=== PATIENT | male | born 1965 | race Caucasian/White ===

== ENCOUNTER 2018-06-28 18:23 | Emergency (ER) | payer BC ==
--- NOTE | 2018-06-28 20:27 | EDM.PDOC ---
ED HPI GENERAL MEDICAL PROBLEM - General Chief Complaint: Genitourinary Problem Stated Complaint: UNABLE TO URINATE SINCE 12PM Time Seen by Provider: 06/28/18 19:58 Source of Information: Reports: Patient, RN Notes Reviewed History Limitations: Reports: No Limitations - History of Present Illness INITIAL COMMENTS - FREE TEXT/NARRATIVE: Patient is a 52-year-old male who presents to the ED for evaluation of urinary retention after his hemorrhoidectomy today. The patient states that this morning he underwent an hemorrhoidectomy done by Dr. Pitts, he states that everything went fine and he was able to urinate shortly after the surgery. He states at around noon he became unable to void and has not emptied his bladder since noon today. The patient states that he had the urge to go but could not initiate his stream. He denies any fevers, chills, nausea, vomiting or abdominal pain. He said there was some mild bladder discomfort earlier with urinary retention. He also states that he has not had a prior issue with an enlarged prostate or trouble urinating in the past. Abdomen Pain Score (Numeric/FACES): 4 - Related Data Allergies Allergy/AdvReac Type Severity Reaction Status Date / Time No Known Allergies Allergy Verified 06/28/18 18:38 Home Meds: Home Meds . [No Known Home Meds] 06/28/18 [History] ED ROS GENERAL - Review of Systems Review Of Systems: See Below Constitutional: Reports: No Symptoms HEENT: Reports: No Symptoms Respiratory: Reports: No Symptoms Cardiovascular: Reports: No Symptoms Endocrine: Reports: No Symptoms GI/Abdominal: Reports: Abdominal Pain (lower abdominal discomfort) : Reports: Urinary Retention. Denies: Dysuria, Frequency, Hematuria, Pain Musculoskeletal: Reports: No Symptoms Skin: Reports: No Symptoms Neurological: Reports: No Symptoms Psychiatric: Reports: No Symptoms Hematologic/Lymphatic: Reports: No Symptoms Immunologic: Reports: No Symptoms ED EXAM, RENAL/ - Physical Exam Exam: See Below Exam Limited By: No Limitations General Appearance: Alert, WD/WN, No Apparent Distress Ears: Normal External Exam Nose: Normal Inspection Throat/Mouth: Normal Inspection, Normal Oropharynx, No Airway Compromise Head: Atraumatic, Normocephalic Neck: Normal Inspection Respiratory/Chest: No Respiratory Distress, Lungs Clear, Normal Breath Sounds, No Accessory Muscle Use, Chest Non-Tender Cardiovascular: Normal Peripheral Pulses, Regular Rate, Rhythm, No Murmur (Male) Exam: Normal Inspection ( was present for exam: normal inspection with Weir catheter in place.). No: Urethral Discharge Extremities: Normal Inspection, Normal Capillary Refill Neurological: Alert, Oriented, Normal Cognition, No Motor/Sensory Deficits Psychiatric: Normal Affect, Normal Mood Skin Exam: Warm, Dry, Intact, Normal Color, No Rash Course - Vital Signs Last Recorded V/S: Last Vital Signs Temp 98.2 F 06/28/18 18:38 Pulse 106 H 06/28/18 18:38 Resp 20 06/28/18 18:38 BP 128/89 06/28/18 18:38 Pulse Ox 98 06/28/18 18:38 - Re-Assessments/Exams Free Text/Narrative Re-Assessment/Exam: 06/28/18 20:32 Patient presents to the ED for evaluation of urinary retention. The nurses did place a Weir and this did relieve his symptoms he states now that he is resting comfortably. Will send him home with a leg bag and the Weir in place for overnight, with a recommendation that he get the Weir taken out tomorrow or early morning in the clinic. Patient understands and agrees with this. Departure - Departure Time of Disposition: 20:24 Disposition: Home, Self-Care 01 Condition: Fair Clinical Impression: Postoperative urinary retention - Discharge Information *PRESCRIPTION DRUG MONITORING PROGRAM REVIEWED*: No *COPY OF PRESCRIPTION DRUG MONITORING REPORT IN PATIENT JOAQUÍN: No Instructions: Clean Intermittent Catheterization, Male Referrals: Davey Pitts MD [Primary Care Provider] - Forms: ED Department Discharge Additional Instructions: You have been evaluated in the ED today for your urinary retention. There was a Weir catheter placed and this did relieve your symptoms. This will need to stay in place for around 24 hours as it seems your body needs more time to recover from the anesthesia. Recommend that this comes out tomorrow afternoon or early morning. Done at the clinic or he may return to ED for removal of this catheter. This can be a nursing visit. Please return to the ED if her symptoms change or worsen.
== END 2018-06-28 20:50 | disposition home or self-care (01) ==
LOC: JD.ED 18:23
DX: R33.8 Other retention of urine (principal); Z98.890 Other specified postprocedural states
CPT/HCPCS: 51702; 51798; 99283